=== PATIENT | female | born 1980 | race Caucasian/White ===

== ENCOUNTER → 2023-03-13 13:02 | Outpatient (REF) | payer OTHER, SELFPAY | LOC: MRI 3T 13:02 | PROVIDERS: ATTENDING PHYSICIAN Internal Medicine Gastroenterology; FAMILY PHYSICIAN Family Medicine | DX: R10.11 Right upper quadrant pain (principal); R11.0 Nausea; R63.4 Abnormal weight loss | CPT/HCPCS: 74183; A9575 ==

== ENCOUNTER → 2023-07-23 09:17 | Outpatient (REF) | payer OTHER, SELFPAY | LOC: WDC 09:17 | PROVIDERS: ATTENDING PHYSICIAN Nurse Practitioner Adult Health; FAMILY PHYSICIAN Family Medicine | DX: N63.20 Unspecified lump in the left breast, unspecified quadrant (principal); N63.23 Unspecified lump in the left breast, lower outer quadrant | CPT/HCPCS: 76642; 77061; 77065 ==

== ENCOUNTER 2023-10-17 13:22 | Emergency (ER) | payer BC, SELFPAY ==
[2023-10-17] VITALS (9 sets, daily range): BP systolic 91–125; BP diastolic 58–90; PULSE 71–96; BMI 18.8
[2023-10-17 13:40] LABS: % Basophils 0.8 % (0-2); % Eosinophils 0.1 % (0-6); % Immature Granulocytes 0.4 % (0-0.5); % Lymphocytes 19.3 % (20.5-51.1); % Monocytes 4.3 % (1.7-9.3); % Neutrophils 75.1 % (42.2-75.2); Absolute Basophils 0.1 10^3/uL (0-0.2); Absolute Lymphocytes 1.5 10^3/uL (1.2-3.4); Absolute Monocytes 0.3 10^3/uL (0.1-0.6); Absolute Neutrophils 5.9 10^3/uL (1.4-6.5); Hematocrit 37.8 % (37.0-47.0); Hemoglobin 13.4 g/dL (12.0-16.0); Mean Corp Hgb Conc. 35.4 g/dL (33.0-37.0); Mean Corpuscular Hgb 32.5 pg (27.0-31.0); Mean Corpuscular Volume 91.7 fL (81.0-99.0); Mean Platelet Volume 9.1 fL (7.4-10.4); Nucleated Red Blood Cells % 0 %; Platelet Count 259 10^3/uL (130-400); Red Blood Cell Count 4.12 10^6/uL (4.20-5.40); White Blood Cell Count 7.9 10^3/uL (4.8-10.8)
[2023-10-17 13:56] LABS: ALT (SGPT) 17 U/L (0-35); AST (SGOT) 29 U/L (14-36); Albumin 5.5 g/dl (3.5-5.0); Alkaline Phosphatase 59 U/L (38-126); Blood Urea Nitrogen 11 mg/dl (7-17); Calcium 10.6 mg/dl (8.4-10.2); Carbon Dioxide 21 mmol/L (22-30); Chloride 101 mmol/L (98-107); Estimated Creatinine Clearance 78 ml/min; Glucose 101 mg/dl (70-99); Sodium 139 mmol/L (135-145); Total Bilirubin 0.9 mg/dl (0.2-1.3); eGFR > 60.00
--- NOTE | 2023-10-17 14:20 | ED.GENMED ---
History of Present Illness
General
Chief Complaint: Fainting Sensation
Source: patient
Exam Limitations: none
Time Seen by Provider: 10/17/23 13:47
History of Present Illness
History of Present Illness:
43-year-old otherwise healthy female Gail with the onset of lightheadedness/dizziness while driving today. She felt as though she was going to pass out. There is a racing heart sensation no chest pain. She became sweaty then she developed
numbness to both arms feet. She states the lightheadedness had somewhat improved but she still feels very tired. No current chest pain. She denies any vision loss. No recent travel or surgery. No other complaints at this time
Past History
Past History
ED Past Medical History: Psychiatric (Anxiety, ) and Other (IBS)
ED Past Surgical History: , Gynecological (Tubal) and Other (Hernia, thyroidectomy)
Social History
Tobacco: Non-smoker
Alcohol: Occasional
Personal:
Living: with family
Phy Exam
Physical Exam
Physical Exam:
General: Well-appearing female no acute respiratory distress
HEENT: Normocephalic atraumatic
Heart: Regular rate and rhythm no murmurs
Lungs: Clear no wheeze
Abdomen is soft nontender nondistended no guarding or rebound normal bowel sounds
Extremities: No cyanosis or edema
Neuro: Alert and oriented no drift no facial asymmetry. [place] does reproduce dizziness when turning to the right but not to the left.
Course
Orders/Labs/Results
Orders:
Orders
10/17/23 13:27
Electrocardiogram (*1) Urgent
Reason for Study: Syncope
EKG- Treatment ONCE
10/17/23 13:32
Complete Blood Count/With Diff Urgent
Comprehensive Metabolic Panel Urgent
Lipase Urgent
TSH Reflex To Free T4 Urgent
10/17/23 13:33
Lyme Progressive Urgent
Comment: Add on by Blanco Georges
10/17/23 14:05
Add On- LAB Urgent
Tests Added?: lipase
0.9% Sodium Chloride 1000 ml [Nss] 1,000 ml IV BOLUS
10/17/23 14:09
Orthostatic VS- Treatment ONCE
10/17/23 14:38
COVID-19 Antigen Urgent
Source: Nasal Swab
10/17/23 17:01
Add On- LAB Urgent
Tests Added?: lyme progressive
Abnormal Lab Results
10/17/23
13:32
RBC 4.12 L 10^6/uL
(4.20-5.40)
MCH 32.5 H pg
(27.0-31.0)
Lymphocytes % 19.3 L %
(20.5-51.1)
Carbon Dioxide 21 L mmol/L
(22-30)
Glucose 101 H mg/dl
(70-99)
Calcium 10.6 H mg/dl
(8.4-10.2)
Albumin 5.5 H g/dl
(3.5-5.0)
10/17/23 13:32
10/17/23 13:32
Vital Signs
Initial and Last Documented VS:
Initial Vital Signs
Temp Pulse Resp BP Pulse Ox
99.3 F 85 16 115/77 100
10/17/23 13:25 10/17/23 13:25 10/17/23 13:25 10/17/23 13:25 10/17/23 13:25
Last Documented Vital Signs
Temp Pulse Resp BP Pulse Ox
99.3 F 77 10 117/85 100
10/17/23 13:25 10/17/23 17:15 10/17/23 17:15 10/17/23 17:05 10/17/23 17:15
MDM/Problems Addressed
Differential Diagnosis Includes:
Lightheadedness/dizziness. Differential could include volume depletion versus electrolyte abnormality versus vertigo versus arrhythmia
EKG shows sinus rhythm without ischemic changes. Heart rate normal on monitor. Will check labs. Orthostatic vital signs pending. Offered and considered meclizine however patient declined at this time. Will try fluids
*Critical Care Note
Total Time (30-74mins, 75-104mins- exclusive of procedures): Not Applicable
Update Note
Update Note:
Patient reexamined multiple times. Heart rate does jump up with orthostatic vital signs with blood pressure remained stable. Labs reviewed COVID-negative Lyme test ordered secondary to fatigue headache. Patient does have celiac disease she is
uncertain whether or not she was exposed to gluten recently. No arrhythmias noted on monitor. No evidence of anemia or electrolyte abnormality. Do not suspect ACS or PE. Also does deal with some dizziness with position change question underlying
positional vertigo. Patient hesitant to take any meclizine here but will prescribe some for at home. No indication for admission. Stable for discharge
ED Attending Note
-
Portions of this chart may have been created with voice recognition software.� Occasional wrong word or��sound alike� substitutions may have occurred due to the inherent limitations of voice recognition software.
Discharge Plan
Departure
Patient Disposition: Home (Routine Discharge)
Date of Disposition: 10/17/23
Time of Disposition: 17:44
Patient with high blood pressure during this ER visit?: No
Discharge Problem:
Dizziness
Instructions: Near Fainting (DC)
Prescriptions:
No Action
vit-iron fum-folic ac 1 EACH tablet
1 ea PO DAILY
Pepcid Tab
10 mg PO PRN PRN (Reason: indigestion)
acetaminophen 325 MG tablet
650 mg PO Q4HPRN PRN (Reason: mild pain) 0RF
ibuprofen 600 MG tablet
600 mg PO Q4HPRN PRN (Reason: cramps) 0RF
tizanidine 4 mg tablet
4 mg PO Q8H PRN (Reason: muscle spasticity) Qty: 12 0RF
oxycodone 5 mg tablet
5 mg PO Q8H PRN (Reason: pain) Qty: 8 0RF
pantoprazole [Protonix] 40 mg tablet,delayed release (DR/EC)
40 mg PO DAILY Qty: 30 0RF
ondansetron 4 mg tablet,disintegrating
4 mg PO Q8H PRN (Reason: nausea and vomiting) Qty: 15 0RF
Referrals:
Terrance Hou, DO [Family Provider] -
Activity Restrictions/Additional Instructions:
Stay hydrated. Rest. You should receive a call if your Lyme test is positive. Return for worsening symptoms otherwise follow-up with your treating doctor
Interventions
Interventions:
*Risk Screen - Suicide Last Done: 10/17/23 13:25
*General Assessment Last Done: 10/17/23 13:25
*Neglect/Abuse Screening Last Done: 10/17/23 13:25
ED- Fall Risk Assessment Last Done: 10/17/23 13:25
*ED COVID-19 Vaccine History Last Done: 10/17/23 13:25
ED- Cardiac Assessment Last Done: 10/17/23 14:11
ED- Neurological Assessment Last Done: 10/17/23 14:11
Discharge Date and Time
Print Language: AZERI
[2023-10-17 14:26] LABS: TSH Reflex To Free T4 1.14 uIU/ml (0.47-4.68)
[2023-10-17 14:30] LABS: Lipase 87 U/L (23-300)
[2023-10-17] MEDS: NSS 1000 IV (14:33)
[2023-10-17 15:04] LABS: COVID-19 Antigen Negative (Negative)
[2023-10-20 13:45] LABS: Lyme Antibody Screen, EIA Negative (Negative)
== END 2023-10-17 18:10 | disposition home or self-care (01) ==
LOC: EMR 13:22
PROVIDERS: Physician Assistant; EMERGENCY PHYSICIAN Emergency Medicine; FAMILY PHYSICIAN Family Medicine
DX: R42 Dizziness and giddiness (principal); R41.9 Unspecified symptoms and signs involving cognitive functions and awareness; K58.9 Irritable bowel syndrome, unspecified
CPT/HCPCS: 99283; 96360; 80053; 83690; 84443; 85025; 86618; 87811; 93005

== ENCOUNTER → 2023-12-26 08:02 | Outpatient (REF) | payer BC, SELFPAY | LOC: RAD 08:02 | PROVIDERS: FAMILY PHYSICIAN Family Medicine | DX: R11.0 Nausea (principal) | CPT/HCPCS: 78264; A9541 ==

== ENCOUNTER 2024-06-11 11:45 | Emergency (ER) | payer OTHER, SELFPAY ==
[2024-06-11 11:58] VITALS: BP 114/73
[2024-06-11 12:20] LABS: % Basophils 0.6 % (0-2); % Eosinophils 0.1 % (0-6); % Immature Granulocytes 0.3 % (0-0.5); % Lymphocytes 17.1 % (20.5-51.1); % Monocytes 4.5 % (1.7-9.3); % Neutrophils 77.4 % (42.2-75.2); Absolute Lymphocytes 1.2 10^3/uL (1.2-3.4); Absolute Monocytes 0.3 10^3/uL (0.1-0.6); Absolute Neutrophils 5.3 10^3/uL (1.4-6.5); Hematocrit 40.5 % (37.0-47.0); Hemoglobin 13.7 g/dL (12.0-16.0); Mean Corp Hgb Conc. 33.8 g/dL (33.0-37.0); Mean Corpuscular Volume 94.6 fL (81.0-99.0); Mean Platelet Volume 9.3 fL (7.4-10.4); Nucleated Red Blood Cells % 0 %; Platelet Count 285 10^3/uL (130-400); Red Blood Cell Count 4.28 10^6/uL (4.20-5.40); Red Cell Dist. Width 11.8 % (11.5-14.5); White Blood Cell Count 6.9 10^3/uL (4.8-10.8)
[2024-06-11 12:32] LABS: HCG, Serum Qualitative Screen Negative
[2024-06-11 12:34] LABS: ALT (SGPT) 15 U/L (0-35); AST (SGOT) 26 U/L (14-36); Albumin 5.4 g/dl (3.5-5.0); Alkaline Phosphatase 51 U/L (38-126); Blood Urea Nitrogen 10 mg/dl (7-17); Carbon Dioxide 24 mmol/L (22-30); Chloride 105 mmol/L (98-107); Glucose 120 mg/dl (70-99); Potassium 4.2 mmol/L (3.5-5.1); Sodium 142 mmol/L (135-145); Total Bilirubin 0.9 mg/dl (0.2-1.3); Total Protein 8.2 g/dl (6.3-8.2); eGFR > 60.00
--- NOTE | 2024-06-11 12:39 | ED.GENMED ---
History of Present Illness
General
Chief Complaint: Chest Pain
Source: patient
Exam Limitations: none
Time Seen by Provider: 06/11/24 12:38
History of Present Illness
History of Present Illness:
43yoF with a history of celiac disease presenting for evaluation of chest pain. Patient was sitting in her car this morning around 10 AM when she had a sudden onset of pain around her left breast region. She describes the pain as sharp. Pain is
nonradiating and is worse with breathing. It has been constant since it began. Of note, patient did have the flu about 2 and half weeks ago and has not been feeling well since. She is also been having some nausea over the past week which she
attributed to her celiac disease. She denies any leg swelling, calf pain, syncope. 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 She denies any recent travel or oral contraceptive use.
Past History
Past History
ED Past Medical History: Psychiatric (Anxiety, ) and Other (IBS)
ED Past Surgical History: , Gynecological (Tubal) and Other (Hernia, thyroidectomy)
Social History
Tobacco: Non-smoker
Alcohol: Occasional
Personal:
Living: with family
Phy Exam
General Physical Exam
General Presentation: well appearing and no apparent distress
General age: appears stated age
General Skin: warm and dry
General Habitus: normal
General Mental: alert
ENT Exam
ENT Exam: normocephalic
Cardiovascular Exam
Cardiovascular Exam: regular rate/rhythm, no edema, no murmur and normal peripheral pulses
Pulmonary Exam
Pulmonary Exam: lungs clear, no respiratory distress, no rales, chest non tender, no crackles, no rhonchi and other (L breast normal to inspection without erythema/skin changes. No chest wall tenderness. )
Neurological Exam
Neurological Exam: alert
[place] Coma Scale
Eye Opening: Spontaneous
Verbal Response: Oriented
Motor Response: Obeys Commands
GCS Total Score: 15
Skin Exam
Skin Exam: normal color and warm/dry
Psychiatric Exam
Psychiatric Exam: normal mood/affect
Scores
Heart Score for Chest Pain Patients
STEMI patient?: No
History: Slightly or Non-Suspicious
ECG: Normal
Age: </= 45 years
Risk Factors: No Risk Factors
Troponin: </= Normal Limit
Heart Score for Chest Pain Patients: 0
Heart Score Risk: 2.5% MACE over next 6 weeks
Course
Orders/Labs/Results
Orders:
Orders
06/11/24 11:46
Electrocardiogram (*1) Urgent
Reason for Study: Chest Pain
EKG- Treatment ONCE
06/11/24 12:02
Test Result ONCE
06/11/24 12:08
Complete Blood Count/With Diff Urgent
Comprehensive Metabolic Panel Urgent
HCG, Serum Qualitative Screen Urgent
Comment: Notify provider if positive test present
TSH Urgent
Troponin I Urgent
06/11/24 12:49
Add On- LAB Urgent
Tests Added?: TSH
Cardiac Monitoring- Treatment ONCE
EKG- Treatment ONCE
06/11/24 12:51
Ondansetron Injectable [Zofran] 4 mg IV NOW STA
06/11/24 13:40
D-Dimer Urgent
06/11/24 14:09
CR Chest - 2 Views Urgent
Comment:
Reason For Exam: CP
06/11/24 15:00
Electrocardiogram (*1) Urgent
Reason for Study: Chest Pain
06/11/24 15:01
Troponin I Urgent
06/11/24 16:31
Ketorolac [Toradol] 15 mg IV NOW STA
Abnormal Lab Results
06/11/24
12:08
MCH 32.0 H pg
(27.0-31.0)
Neutrophils % 77.4 H %
(42.2-75.2)
Lymphocytes % 17.1 L %
(20.5-51.1)
Glucose 120 H mg/dl
(70-99)
Albumin 5.4 H g/dl
(3.5-5.0)
06/11/24 12:08
06/11/24 12:08
Vital Signs
Initial and Last Documented VS:
Initial Vital Signs
Temp Pulse Resp BP Pulse Ox
97.8 F 94 16 114/73 98
06/11/24 11:58 06/11/24 11:58 06/11/24 11:58 06/11/24 11:58 06/11/24 11:58
Last Documented Vital Signs
Temp Pulse Resp BP Pulse Ox
97.8 F 84 16 100/75 99
06/11/24 11:58 06/11/24 14:00 06/11/24 11:58 06/11/24 14:00 06/11/24 14:00
MDM/Problems Addressed
Differential Diagnosis Includes:
43yoF here with sharp pleuritic L chest pain that began this morning. No leg swelling or calf pain. No VTE risk factors. VSS. She is well-appearing in no acute distress. Exam reassuring. Differential diagnosis includes but is not limited to:
Costochondritis, pleurisy, pneumonia, PE, less likely ACS
Initial ED plan: Cardiac labs and EKG obtained in triage. EKG shows NSR without ischemic changes and troponin within normal limits. Will check D-dimer, TSH, delta troponin/EKG, and CXR vs. CT depending on D-dimer results.
*EKG
Interpreted by ED Provider?: Yes
EKG Intrepretation Date: 06/11/24
Heart Rate: 81
Rate: normal
Rhythm: sinus
[place]: normal axis
Interval: normal interval
QRS Pattern: normal QRS
Ischemia: no ischemia
*Critical Care Note
Total Time (30-74mins, 75-104mins- exclusive of procedures): Not Applicable
Update Note
Update Note:
D-dimer normal making PE very unlikely. Repeat EKG and troponin unchanged. Chest x-ray is clear. On reassessment, patient does report improvement of pain after applying a warm blanket to her chest wall. Suspect musculoskeletal pain. Supportive
care discussed and advised follow-up with her PCP next week. ED return precautions reviewed. Patient in agreement with plan and was discharged in stable condition.
ED Attending Note
-
Portions of this chart may have been created with voice recognition software.� Occasional wrong word or��sound alike� substitutions may have occurred due to the inherent limitations of voice recognition software.
Discharge Plan
Departure
Patient Disposition: Home (Routine Discharge)
Date of Disposition: 06/11/24
Time of Disposition: 16:31
Patient with high blood pressure during this ER visit?: No
Discharge Problem:
Pleuritic chest pain
Instructions: Chest Pain PCP Follow Up
Prescriptions:
No Action
vit-iron fum-folic ac 1 EACH tablet
1 ea PO DAILY
Pepcid Tab
10 mg PO PRN PRN (Reason: indigestion)
acetaminophen 325 MG tablet
650 mg PO Q4HPRN PRN (Reason: mild pain) 0RF
ibuprofen 600 MG tablet
600 mg PO Q4HPRN PRN (Reason: cramps) 0RF
tizanidine 4 mg tablet
4 mg PO Q8H PRN (Reason: muscle spasticity) Qty: 12 0RF
oxycodone 5 mg tablet
5 mg PO Q8H PRN (Reason: pain) Qty: 8 0RF
pantoprazole [Protonix] 40 mg tablet,delayed release (DR/EC)
40 mg PO DAILY Qty: 30 0RF
ondansetron 4 mg tablet,disintegrating
4 mg PO Q8H PRN (Reason: nausea and vomiting) Qty: 15 0RF
Referrals:
Terrance Hou, [Family Provider] -
Activity Restrictions/Additional Instructions:
Apply heat to affected area. Take ibuprofen as needed for pain.
Please follow-up with your family doctor Next week. Return to the ER with any new or worsening symptoms.
Interventions
Interventions:
*Risk Screen - Suicide Last Done: 06/11/24 11:58
*Neglect/Abuse Screening Last Done: 06/11/24 11:58
ED- Cardiac Assessment Last Done: 06/11/24 13:05
Discharge Date and Time
Print Language: MONG[place]
[2024-06-11 12:44] LABS: Troponin I < 0.012 ng/ml
[2024-06-11 13:09] VITALS: BMI 19.0
[2024-06-11] MEDS: ZOFRAN 4 MG IV (13:10)
[2024-06-11 13:13] VITALS: BP 111/81
[2024-06-11 14:00] VITALS: BP 100/75
[2024-06-11 14:07] LABS: D-Dimer < 0.27 ug/mlFEU (0.00-0.50)
[2024-06-11 14:53] LABS: TSH 1.47 uIU/ml (0.47-4.68)
[2024-06-11 15:53] LABS: Troponin I < 0.012 ng/ml
[2024-06-11] MEDS: TORADOL 15 MG IV (17:14)
== END 2024-06-11 17:24 | disposition home or self-care (01) ==
LOC: EMR 11:45
PROVIDERS: Emergency Medicine; Physician Assistant; EMERGENCY PHYSICIAN Emergency Medicine; FAMILY PHYSICIAN Family Medicine
DX: R07.81 Pleurodynia (principal); K90.0 Celiac disease; K58.9 Irritable bowel syndrome, unspecified
CPT/HCPCS: 99283; 96374; 96375; 71046; 80053; 84443; 84484; 84703; 85025; 85379; 93005

== ENCOUNTER → 2024-11-15 17:37 | Outpatient (REF) | payer OTHER, SELFPAY | LOC: MRI 17:37 | PROVIDERS: ATTENDING PHYSICIAN Nurse Practitioner Family; FAMILY PHYSICIAN Family Medicine | DX: E22.9 Hyperfunction of pituitary gland, unspecified (principal) | CPT/HCPCS: 70553; A9575 ==